=== PATIENT | male | born 1985 | race African-American/Black ===

== ENCOUNTER 2022-08-25 08:45 | Emergency (ER) | payer OTHER ==
[~2022-08-25] VITALS: Ht 182.9 cm; Wt 68.0 kg
[2022-08-25 09:37] VITALS: BP 117/70
[2022-08-25] MEDS ORDERED: LIDOCAINE MPF 1% 10 MG/ML VIAL INJ ONE (11:05)
--- NOTE | 2022-08-25 12:05 | NUR ---
PT RECEIVED, CARE ASSUMED. PT PRESENTS SELF TO ER WITH C/O ABCESS TO LEFT BUTTOX AREA. I&D TRAY AT BED SIDE.
[2022-08-25] MEDS ORDERED: SULF-58 PO (13:07)
== END 2022-08-25 13:40 | disposition home or self-care (01) ==
LOC: MED 08:45
DX: L02.31 Cutaneous abscess of buttock (principal); L03.317 Cellulitis of buttock; F12.90 Cannabis use, unspecified, uncomplicated; Z79.899 Other long term (current) drug therapy
CPT/HCPCS: 10060; 99283; J2001